=== PATIENT | male | born 1995 | race Caucasian/White ===

== ENCOUNTER 2019-03-25 14:43 | Emergency (ER) | payer OTHER, SELFPAY ==
[2019-03-25 14:50] VITALS: BP 131/83; PULSE 59; RESP 16; TEMP 36.9; O2SAT 98
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
[2019-03-25 16:27] VITALS: BP 131/77; PULSE 64; RESP 16; O2SAT 98
== END 2019-03-25 16:28 | disposition home or self-care (01) ==
PROVIDERS: Emergency Provider Nurse Practitioner Family
DX: S06.0X0A Concussion without loss of consciousness, initial encounter (principal); V89.2XXA Person injured in unspecified motor-vehicle accident, traffic, initial encounter
CPT/HCPCS: 99282